=== PATIENT | male | born 1980 | race American Indian/Alaskan Native ===

== ENCOUNTER 2020-12-27 15:30 | Emergency (ER) | payer OTHER ==
[2020-12-27] MEDS ORDERED: Diphtheria,Pertussis(Acell),Tetanus Vaccine 0.5 ML Syringe IM ONE (15:35)
[2020-12-27] MEDS ORDERED: Cephalexin 250 MG Cap PO ONE (16:00)
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
[2020-12-27] MEDS ORDERED: Acetaminophen 500 MG Tab PO ONE (16:09)
== END 2020-12-27 16:29 | disposition home or self-care (01) ==
LOC: JP.ED 15:30
DX: L03.115 Cellulitis of right lower limb (principal); Z72.0 Tobacco use; Z23 Encounter for immunization
CPT/HCPCS: 90471; 90715; 99283; A9270